=== PATIENT | female | born 1990 | race African-American/Black ===

== ENCOUNTER 2016-09-06 19:15 | Emergency (ER) | payer MEDICAID ==
[2016-03-14 09:09] VITALS: BMI 28.5
[~2016-09-06 19:15] MED LIST: BENADRYL25 MG PO; COLACE100 MG PO; FERROUS SULFAT325 MG PO; HYDROCODONE-APA1 TAB PO; IBUPROFEN600 MG PO; MACROBID100 MG PO; PRENATAL COMPLE1 TAB PO
== END 2016-09-06 20:50 | disposition home or self-care (01) ==
LOC: D.ER 19:15
DX: M79.661 Pain in right lower leg (principal); K08.89 Other specified disorders of teeth and supporting structures; K02.9 Dental caries, unspecified; F17.200 Nicotine dependence, unspecified, uncomplicated

== ENCOUNTER 2016-11-18 13:44 | Emergency (ER) | payer MEDICAID ==
[2016-03-14 09:09] VITALS: BMI 28.5
== END 2016-11-18 14:39 | disposition home or self-care (01) ==
LOC: D.ER 13:44
DX: K08.89 Other specified disorders of teeth and supporting structures (principal)

== ENCOUNTER 2016-11-23 07:08 | Inpatient (IN) | payer MEDICAID ==
[~2016-11-23] VITALS: Ht 162.6 cm; Wt 60.0 kg
[2016-11-23 07:45] LABS: BASOPHILS 0.2 % (0-2); EOSINOPHILS 0.2 % (0-7); HEMOGLOBIN 10.2 g/dL (12-16); IMMATURE GRANULOCYTES 0.2 % (0-5); LYMPHOCYTES 25.2 % (15-50); MCH 34.6 pg (26.0-34.0); MCHC 32.9 g/dL (31.0-37.0); MCV 105.1 fL (80.0-100.0); MEAN PLATELET VOLUME 10.6 fL (7.4-10.4); NEUTROPHILS 66.2 % (40-80); PLATELET COUNT 166 10x3/uL (130-400); RBC 2.95 10x6/uL (4.00-5.40); RDW 16.1 % (11.5-14.5); WBC 6.4 10x3/uL (4.8-10.8)
[2016-11-23 08:03] LABS: ALBUMIN 2.5 g/dL (3.4-5.0); ALKALINE PHOSPHATASE 312 U/L (46-116); ALT (SGPT) 179 U/L (10-68); CALC OSMOLALITY 277 mosm/kg (275-300); CALCIUM 7.7 mg/dL (8.5-10.1); CARBON DIOXIDE 23.5 mmol/L (21.0-32.0); CHLORIDE - SERUM 104 mmol/L (98-107); CREATININE - SERUM 0.6 mg/dL (0.6-1.3); GLUCOSE 126 mg/dL (74-106); LIPASE 101 U/L (73-393); POTASSIUM - SERUM 3.8 mmol/L (3.5-5.1); PROTEIN - SERUM 6.4 g/dL (6.4-8.2); SODIUM 139 mmol/L (136-145); UREA NITROGEN 8 mg/dL (7-18); eGFR NON AFRICAN AMERICAN > 90 mL/min (90-120)
[2016-11-23 08:10] LABS: APPEARANCE CLOUDY (CLEAR); COLOR DK YELLOW (YELLOW); LEUKOCYTE ESTERASE TRACE (NEGATIVE); SPECIFIC GRAVITY 1.015 (1.005-1.020)
[2016-11-23 08:11] LABS: BACTERIA MODERATE /hpf (NONE SEEN); BILIRUBIN NEGATIVE (NEGATIVE); GLUCOSE NEGATIVE (NEGATIVE); KETONE NEGATIVE (NEGATIVE); MUCUS <1+ /lpf (NONE SEEN); NITRITE NEGATIVE (NEGATIVE); PROTEIN NEGATIVE (NEGATIVE); UROBILINOGEN NORMAL (NORMAL)
[2016-11-23 08:14] LABS: HCG SERUM NEGATIVE (NEGATIVE)
[2016-11-23 10:30] VITALS: BP 111/81
--- NOTE | 2016-11-23 10:31 | NUR ---
PT WAS RECEIVED FROM ER BY WHEELCHAIR. PT GOT IN BED. BED IS LOW, SIDE RAILS UP X 2 AND CALL LIGHT IN REACH. VSS. PT WAS THEN PICKED UP FROM X-RAY TO HAVE MRCP DONE ORDERED. HER IV R AC WAS SALINE LOCKED.
[2016-11-23 10:32] LABS: BILIRUBIN - DIRECT 2.06 mg/dL (0.00-0.30)
[2016-11-23 10:40] LABS: BILIRUBIN - INDIRECT 0.64 mg/dL (0.00-1.00)
--- NOTE | 2016-11-23 10:42 | NUR ---
PT RECEIVED BACK FROM X-RAY. SHE COULD NOT TOLERATE MRCP. SHE STATES THAT SHE PANICKED. PT BACK TO BED. GEN- AWAKE AND ALERT. LUNGS- CLEAR. HEART- RRR. ABD- SOFT WITH TENDERNESS RUQ. EXT- NO EDEMA NOTED. IV PATENT R AC. BED IS LOW, SIDE RAILS UP X 2 AND CALL LIGHT IN REACH.
--- NOTE | 2016-11-23 12:14 | NUR ---
REDEVELOPMENT SPECIALIST INITIATED. MORPHINE 1 MG Q 10 MIN WITH MAX DOSE OF 10 MG IN 1 HR. IV PATENT. PT STATES HER PAIN IS AN 8.
--- NOTE | 2016-11-23 12:35 | NUR ---
PT IS RESTING IN BED. STATES HER PAIN IS MUCH BETTER. SHE RATES PAIN A 2/10. BED IS LOW, SIDE RAILS UP X 2 AND CALL LLIGHT IN REACH.
--- NOTE | 2016-11-23 13:35 | NUR ---
PT IS SLEEPING. BED IS LOW, SIDE RAILS UP X 2 AND CALL LIGHT IN REACH.
[2016-11-23 14:34] VITALS: BP 111/81; Ht 162.6 cm; Wt 60.0 kg
--- NOTE | 2016-11-23 15:22 | NUR ---
PT WAS TRANSFERRED TO [facility]- SURG 2233 BY WHEELCHAIR. REPORT GIVEN TO RN.
--- NOTE | 2016-11-23 18:47 | NUR ---
REFUSES TO STAY NPO, DRINKING BOTTLED WATER
--- NOTE | 2016-11-23 19:00 | NUR ---
PATIENT IN BED WATCHING TV. HOB 40 DEGREES. AAOX4. RR EVEN AND UNLABORED. 0 S/S OF DISTRESS. STATES PAIN IS A 10/10. IV TO RIGHT AC PATENT WITH NO REDNESS OR SWELLING. SRX2. BED LOW. CALL LIGHT WITHIN REACH.
[2016-11-23 20:00] VITALS: BP 112/76
[2016-11-24 06:56] LABS: ALBUMIN 2.3 g/dL (3.4-5.0); ALKALINE PHOSPHATASE 268 U/L (46-116); ALT (SGPT) 151 U/L (10-68); CALCIUM 7.4 mg/dL (8.5-10.1); CARBON DIOXIDE 26.1 mmol/L (21.0-32.0); CHLORIDE - SERUM 106 mmol/L (98-107); CREATININE - SERUM 0.6 mg/dL (0.6-1.3); GLUCOSE 101 mg/dL (74-106); POTASSIUM - SERUM 3.4 mmol/L (3.5-5.1); PROTEIN - SERUM 6.2 g/dL (6.4-8.2); SODIUM 141 mmol/L (136-145); eGFR NON AFRICAN AMERICAN > 90 mL/min (90-120)
[2016-11-24 06:57] LABS: INR 1.18 (0.85-1.17); PROTIME 14.9 SECONDS (11.6-15.0)
[2016-11-24 07:00] LABS: BASOPHILS 0.4 % (0-2); EOSINOPHILS 0.2 % (0-7); HEMATOCRIT 29.6 % (36.0-48.0); HEMOGLOBIN 9.5 g/dL (12-16); IMMATURE GRANULOCYTES 0.2 % (0-5); LYMPHOCYTES 30.2 % (15-50); MCH 34.7 pg (26.0-34.0); MCHC 32.1 g/dL (31.0-37.0); MEAN PLATELET VOLUME 11.5 fL (7.4-10.4); MONOCYTES 8.6 % (2-11); NEUTROPHILS 60.4 % (40-80); PLATELET COUNT 168 10x3/uL (130-400); RBC 2.74 10x6/uL (4.00-5.40); RDW 16.1 % (11.5-14.5); WBC 4.6 10x3/uL (4.8-10.8)
[2016-11-24 07:06] LABS: CALC OSMOLALITY 277 mosm/kg (275-300); UREA NITROGEN 4 mg/dL (7-18)
--- NOTE | 2016-11-24 07:35 | NUR ---
LYING IN BED, REQUESTING FOOD AND DRINK, CALL LIGHT IN REACH, BED LOWEST POSITION, WILL CONTINUE TO MONITOR
[2016-11-24 08:17] LABS: FOLATE (FOLIC ACID) - SERUM 9.2 ng/mL (>3.0)
[2016-11-24 08:21] VITALS: BP 125/76
[2016-11-24 10:16] LABS: HEPATITIS C ANTIBODY <0.1 (0.0-0.9)
--- NOTE | 2016-11-24 10:30 | NUR ---
PATIENT IN LEFT LATERAL POSITION RESTING WITH EYES CLOSED. RESPIRATIONS EVEN AND UNLABORED. SIDE RAILS UP X2. BED IN LOW POSITION. CALL LIGHT IN REACH.
[2016-11-24 13:01] VITALS: BP 128/89
[2016-11-24 16:10] VITALS: BP 133/95
--- NOTE | 2016-11-24 19:00 | NUR ---
PATIENT IN BED WATCHING TV. HOB 40 DEGREES. AAOX4. RR EVEN AND UNLABORED. 0 S/S OF DISTRESS. STATES PAIN IS A 7/10. IV TO RIGHT AC PATENT WITH NO REDNESS OR SWELLING. SRX2. BED LOW. CALL LIGHT WITHIN REACH.
[2016-11-24 20:00] VITALS: BP 105/54
[2016-11-25] VITALS: BP 110/62
[2016-11-25 04:00] VITALS: BP 114/66
[2016-11-25 06:15] LABS: BASOPHILS 0.2 % (0-2); EOSINOPHILS 0.7 % (0-7); HEMATOCRIT 29.6 % (36.0-48.0); HEMOGLOBIN 9.4 g/dL (12-16); IMMATURE GRANULOCYTES 0.2 % (0-5); LYMPHOCYTES 35.6 % (15-50); MCH 34.6 pg (26.0-34.0); MCHC 31.8 g/dL (31.0-37.0); MCV 108.8 fL (80.0-100.0); MONOCYTES 7.6 % (2-11); NEUTROPHILS 55.7 % (40-80); PLATELET COUNT 166 10x3/uL (130-400); RBC 2.72 10x6/uL (4.00-5.40); RDW 16.2 % (11.5-14.5); WBC 4.2 10x3/uL (4.8-10.8)
[2016-11-25 06:37] LABS: ALBUMIN 2.2 g/dL (3.4-5.0); ALKALINE PHOSPHATASE 247 U/L (46-116); ALT (SGPT) 125 U/L (10-68); BILIRUBIN - DIRECT 2.42 mg/dL (0.00-0.30); BILIRUBIN - INDIRECT 1.08 mg/dL (0.00-1.00); CALCIUM 7.5 mg/dL (8.5-10.1); CARBON DIOXIDE 26.5 mmol/L (21.0-32.0); CHLORIDE - SERUM 105 mmol/L (98-107); CREATININE - SERUM 0.6 mg/dL (0.6-1.3); GLUCOSE 112 mg/dL (74-106); PROTEIN - SERUM 6.1 g/dL (6.4-8.2); SODIUM 138 mmol/L (136-145); eGFR NON AFRICAN AMERICAN > 90 mL/min (90-120)
[2016-11-25 06:38] LABS: CALC OSMOLALITY 272 mosm/kg (275-300); POTASSIUM - SERUM 3.3 mmol/L (3.5-5.1); UREA NITROGEN 2 mg/dL (7-18)
--- NOTE | 2016-11-25 08:00 | NUR ---
ASSESSMENT COMPLETE. IV TO R AC PATENT. NS INFUSING AT 100 CC/HR VIA PUMP. BUSINESS ANALYSIS CONSULTANT MORPHINE 1-10-10 IN USE FOR PAIN CONTROL. NPO FOR SURGERY TODAY.
[2016-11-25 10:05] VITALS: BP 126/99
--- NOTE | 2016-11-25 10:21 | NUR ---
Patient Name: TOYA REYES Admission Status: ER Accout number: [id number] Admission Date: 11-23-2016 : 1990 Admission Diagnosis: Attending: PAT Current LOS: 2 Anticipated DC Date: 11-27-2016 Planned Disposition: Home Primary Insurance: MEDICAID [place] Discharge Planning Comments: CM MET WITH PATIENT REGARDING D/C NEEDS AND PLANS. PATIENT STATED SHE LIVES WITH HER UNCLE (TYLER) AND HE WILL DRIVE HER HOME AT DISCHARGE. PATIENT STATED THERE ARE NO STAIRS AT HOME. PATIENT STATED SHE IS INDEPENDENT WITH HER CARE AND HAS NO DME AT HOME. PATIENTS PCP IS DR. DOLAN AND USES [facility] AT [facility]. PATIENT WAS OFFERED HOME HEALTH AND SHE STATED "NO HOME HEALTH". CM WILL CONTINUE TO FOLLOW PATIENT WITH D/C NEEDS AND PLANS. PCP DR. MAGDALENO BHAGAT (PHARMACY) [facility] [phone] TYLER (UNCLE) [phone] [employer]: Xi [place] Jesus Is the patient Alert and Oriented? Yes 0 * How many steps to enter\\exit or inside your home? 0 0 * PCP DR. DOLAN 0 * Pharmacy [facility] 0 * Preadmission Environment Home with Family 0 * ADLs Independent 0 * List name and contact numbers for known caregivers / representatives who currently or will assist patient after discharge: TYLER RUIZ (UNCLE) [phone] 0 * Community resources currently utilized None 0 * Additional services required to return to the preadmission environment? Yes 0 * Can the patient safely return to the preadmission environment? Yes 0 * Has this patient been hospitalized within the prior 30 days at any hospital? No 0 Grand Total: 0
[2016-11-25 11:26] LABS: HCG SERUM NEGATIVE (NEGATIVE)
[2016-11-25 11:36] VITALS: BP 125/98
--- NOTE | 2016-11-25 12:07 | NUR ---
OFF FLOOR TO OR VIA BED.
--- NOTE | 2016-11-25 14:40 | NUR ---
STERI STRIPS INTACT TO ABDOMINAL INCISIONS X 4. VSS. SCDS IN USE TO BILAT LEGS.
--- NOTE | 2016-11-25 14:40 | NUR ---
RETURNED TO ROOM FROM RECOVERY ROOM.
[2016-11-25 14:42] VITALS: BP 114/80
--- NOTE | 2016-11-25 16:00 | NUR ---
UP AMBULATING IN ROOM. DENIES ANY NEEDS AT PRESENT.
--- NOTE | 2016-11-25 18:00 | NUR ---
NO CHANGES NOTED.
[2016-11-25 19:00] VITALS: BP 131/85
--- NOTE | 2016-11-25 19:00 | NUR ---
BEDSIDE REPORT RECEIVED AND CARE OF PT ASSUMED. PT UP AMBULATING IN THE ROOM AT THIS ASSESSMENT. DRESSINGS ON LAP SITES INTACT WITH SMALL AMOUNT OF DRAINAGE SEEPING THROUGH. IV IN RIGHT AC PATENT WITH NS INFUSING AT 100 ML / HR. PORTABLE IRRIGATION OPERATOR / MORPHINE IN USE FOR PAIN CONTROL. WILL MONITOR [facility] FOR NEEDS.
--- NOTE | 2016-11-25 21:34 | NUR ---
HS MEDICATIONS GIVEN. NEW IV FLUID BAG STARTED.
--- NOTE | 2016-11-25 23:38 | NUR ---
NPO STATUS STARTING AT MIDNIGHT.
[2016-11-26] VITALS: BP 122/95
[2016-11-26 04:00] VITALS: BP 122/84
[2016-11-26 05:51] LABS: BASOPHILS 0.2 % (0-2); EOSINOPHILS 0.2 % (0-7); HEMATOCRIT 28.6 % (36.0-48.0); HEMOGLOBIN 9.2 g/dL (12-16); IMMATURE GRANULOCYTES 0.2 % (0-5); LYMPHOCYTES 27.9 % (15-50); MCH 35.7 pg (26.0-34.0); MCHC 32.2 g/dL (31.0-37.0); MCV 110.9 fL (80.0-100.0); MEAN PLATELET VOLUME 11.3 fL (7.4-10.4); MONOCYTES 9.1 % (2-11); NEUTROPHILS 62.4 % (40-80); PLATELET COUNT 162 10x3/uL (130-400); RBC 2.58 10x6/uL (4.00-5.40); RDW 16.1 % (11.5-14.5); WBC 5.3 10x3/uL (4.8-10.8)
[2016-11-26 06:13] LABS: ALBUMIN 2.3 g/dL (3.4-5.0); ALKALINE PHOSPHATASE 272 U/L (46-116); BILIRUBIN - DIRECT 3.08 mg/dL (0.00-0.30); BILIRUBIN - INDIRECT 0.82 mg/dL (0.00-1.00); CARBON DIOXIDE 27.8 mmol/L (21.0-32.0); CHLORIDE - SERUM 106 mmol/L (98-107); CREATININE - SERUM 0.6 mg/dL (0.6-1.3); GLUCOSE 97 mg/dL (74-106); POTASSIUM - SERUM 3.6 mmol/L (3.5-5.1); PROTEIN - SERUM 6.3 g/dL (6.4-8.2); SODIUM 142 mmol/L (136-145); eGFR NON AFRICAN AMERICAN > 90 mL/min (90-120)
[2016-11-26 06:17] LABS: ALT (SGPT) 200 U/L (10-68); CALC OSMOLALITY 278 mosm/kg (275-300); UREA NITROGEN 1 mg/dL (7-18)
--- NOTE | 2016-11-26 07:25 | NUR ---
PT PULLED OUT IV AT 0630. RE-SITED TO RIGHT AC USING 20 GUAGE CATHETER IN ONE STICK. RE-STARTED IV FLUIDS AND COGNOS LEAD.
--- NOTE | 2016-11-26 08:00 | NUR ---
ASSESSMENT COMPLETE. IV TO R AC PATENT. NS INFUSING AT 100 CC/HR VIA PUMP. INTERNETWORKING TECHNICIAN MOPRHINE 1-10-10 IN USE FOR PAIN CONTROL. INCISIONS X 4 TO ABDOMEN WITH STERI STRIPS INTACT. DENIES ANY NEEDS AT PRESENT.
--- NOTE | 2016-11-26 08:15 | NUR ---
PATIENT AT ICE MACHINE GETTING ICE. EXPLAINED THAT ORDER IS FOR NPO. STATES "I'M NOT DOING IT. I'M NOT HAVING ANYTHING ELSE DONE" AND RETURNED TO ROOM.
--- NOTE | 2016-11-26 08:22 | OP ---
PATIENT NAME: TOYA REYES MEDICAL RECORD: [id number] :86 LOCATION:[id number] ADMISSION DATE:11/23/16 SURGEON: CINDY RUBIO MD DATE OF OPERATION: 11/25/2016 DATE OF OPERATION: 11/25/2016 SURGEON: Cindy Rubio MD. PREOPERATIVE DIAGNOSES: 1. Choledocholithiasis. 2. Jaundice. 3. Chronic anemia. POSTOPERATIVE DIAGNOSES: 1. Choledocholithiasis. 2. Jaundice. 3. Chronic anemia. PROCEDURE PERFORMED: Laparoscopic cholecystectomy. ANESTHESIA: General. COMPLICATIONS: None. SPECIMENS: Gallbladder. Case was clean contaminated. ESTIMATED BLOOD LOSS: 40 cc. OPERATIVE COURSE: After consent was obtained, the patient was taken to the operating room and placed in the supine position on the operating table. Next, general anesthesia was given via endotracheal intubation. After a timeout was performed that confirmed the correct patient and procedure, anesthesia was obtained, timeout was taken to confirm the correct patient and procedure. Local anesthetic was injected just above the umbilicus. A stab incision was made with an 11-blade scalpel. Using a 5-mm bladeless optical trocar, the abdomen was entered under direct laparoscopic vision was obtained, the patient had profound hepatomegaly. The liver was enlarged to below the umbilicus as well as the ASIS laterally. At this time, ____. The patient was placed in the steep reverse Trendelenburg position. All remaining trocars were placed. A suprapubic port was placed. Two 5-mm trocars were placed into the right lower quadrant. The 5-mm supraumbilical port was upsized to an 11-mm port. The liver was retracted, the gallbladder was identified. [place] down the liver bed, it was grasped and retracted. It was sutured and the sutures were used to suspend the gallbladder, the one retractor was used to elevate the medial portion of the liver and the retractor was then used to take retract the infundibulum laterally. The peritoneum was incised using electrocautery. Blunt dissection was performed with a [place] dissector until the critical view was obtained. Cystic duct lateral, cystic artery medial, liver in the posterior window. At this time, 2 clips were placed in the proximal cystic artery. Three clips were placed in the one clip distal. The artery was transected. The infundibulum of the gallbladder was markedly dilated. At this time, a linear cutting stapler was used to transect the cystic duct with a single firing of the blue load. Next, OPERATIVE REPORT [id number] TOYA REYES the remaining portion of the gallbladder was dissected off the liver bed using electrocautery. Once complete, it was grasped with the tenaculum and removed through the 11-mm trocar and sent for permanent pathology. Next, the operative field was copiously irrigated and suctioned. Careful attention was paid to hemostasis which was obtained liver bed using electrocautery. At this time, the abdomen was copiously irrigated and suctioned. Careful attention was paid to hemostasis remaining portion abdomen was inspected. No evidence of bleeding, no evidence of bowel injury. No evidence of bile leak. At this time, all remaining instruments were removed. The abdomen was desufflated. Trocars were removed. Skin was closed with 4-0 Monocryl, the 12-mm trocar site. The fascia was closed with an 0 Vicryl suture. Skin was closed with 4-0 Monocryl, Mastisol and Steri-Strips. At the end of the case, all needle and instruments were correct. No complications occurred. The patient was extubated and transferred to the PACU in stable condition. TRANSINT:[id number] Voice Confirmation ID: [id number] DOCUMENT ID: [id number] CINDY RUBIO MD at 0822 CC: [id number] DICTATION DATE: 11/25/16 1439 GROUP INSURANCE SPECIAL AGENT: 11/25/[id number] ADM IN [place] [id number] [place] [id number]
[2016-11-26 08:42] VITALS: BP 125/93
--- NOTE | 2016-11-26 09:54 | NUR ---
CM REASSESSMENT NOTE: SABI CALLED PREETHI ([employer]) AT [facility] FOR TRANSFER OF PATIENT FOR ERCP. PREETHI GAVE DR. CUEVAS NUMBER FOR DR. RUBIO TO CALL. [facility] RECOVERY ANALYST CALLED DR. RUBIO WITH NUMBER.
--- NOTE | 2016-11-26 10:04 | NUR ---
RESTING QUIETLY IN BED. DENIES ANY NEEDS AT PRESENT.
[2016-11-26 12:01] VITALS: BP 121/90
[2016-11-26] MEDS ORDERED: ZOSYN 3.3753.375 G1 IV (12:04)
[2016-11-26] MEDS ORDERED: IPRAT-ALBUT 0.5-3 ML UPD (12:05)
[2016-11-26] MEDS ORDERED: LOVENOX30 MG/0.3 SC (12:06)
[2016-11-26] MEDS ORDERED: FLORAJEN3 CAPS460 MG PO (12:08)
[2016-11-26] MEDS ORDERED: MILK OF MAGNESI30 ML PO (12:10)
[2016-11-26] MEDS ORDERED: ONDANSETRON4 MG/2 M3 IV (12:13)
[2016-11-26] MEDS ORDERED: HYDROCODON-ACE1 EAC7 PO (12:16)
--- NOTE | 2016-11-26 12:36 | NUR ---
REPORT CALLED TO SURYA GERMAN RN AT [facility].
--- NOTE | 2016-11-26 13:35 | NUR ---
DC'D TO [facility] VIA AMBULANCE.
--- NOTE | 2016-11-26 13:45 | NUR ---
CM REASSESSMENT NOTE: PATIENT TRANSFERRED TO [facility] BY AMBULANCE.
== END 2016-11-26 13:35 | disposition short-term general hospital (02) | DRG 418 ==
LOC: D.ER 07:08 → D.WS 09:24 → D.MS 09:24
PROVIDERS: Anesthesiology; Emergency Medicine; ADMIT Surgery
PROC: 0FT44ZZ Resection of Gallbladder, Percutaneous Endoscopic Approach (ICD-10-PCS; principal; 2016-11-25 11:15)
DX: K80.51 Calculus of bile duct without cholangitis or cholecystitis with obstruction (principal); F17.203 Nicotine dependence unspecified, with withdrawal; N39.0 Urinary tract infection, site not specified; D50.9 Iron deficiency anemia, unspecified; Z91.19 Patient's noncompliance with other medical treatment and regimen; K76.0 Fatty (change of) liver, not elsewhere classified

== ENCOUNTER 2017-04-22 16:05 | Emergency (ER) | payer MEDICAID ==
[~2017-04-22 16:05] MED LIST changes: +FLORAJEN3 CAPS460 MG PO; +HYDROCODON-ACE1 EAC7 PO; +IPRAT-ALBUT 0.5-3 ML UPD; +LOVENOX30 MG/0.3 SC; +MILK OF MAGNESI30 ML PO; +ONDANSETRON4 MG/2 M3 IV; +ZOSYN 3.3753.375 G1 IV
== END 2017-04-22 17:45 | disposition home or self-care (01) ==
LOC: D.ER 16:05
DX: K04.7 Periapical abscess without sinus (principal); K08.89 Other specified disorders of teeth and supporting structures

== ENCOUNTER 2017-06-05 05:09 | Observation (INO) | payer MEDICAID ==
[~2017-06-05] VITALS: Ht 162.6 cm; Wt 56.8 kg
[2017-06-05 05:39] LABS: BASOPHILS 0.2 % (0-2); EOSINOPHILS 0.7 % (0-7); HEMATOCRIT 24.9 % (36.0-48.0); HEMOGLOBIN 8.6 g/dL (12-16); IMMATURE GRANULOCYTES 0.4 % (0-5); LYMPHOCYTES 27.4 % (15-50); MCH 30.8 pg (26.0-34.0); MCHC 34.5 g/dL (31.0-37.0); MCV 89.2 fL (80.0-100.0); MEAN PLATELET VOLUME 9.5 fL (7.4-10.4); NEUTROPHILS 61.3 % (40-80); RBC 2.79 10x6/uL (4.00-5.40); RDW 24.5 % (11.5-14.5); WBC 8.1 10x3/uL (4.8-10.8)
[2017-06-05 05:42] LABS: PLATELET COUNT 75 10x3/uL (130-400)
[2017-06-05 05:59] LABS: HCG SERUM NEGATIVE (NEGATIVE)
[2017-06-05 06:04] LABS: ALBUMIN 1.8 g/dL (3.4-5.0); ALKALINE PHOSPHATASE 255 U/L (46-116); ALT (SGPT) 70 U/L (10-68); AMYLASE - SERUM 39 U/L (25-115); BILIRUBIN - TOTAL 3.87 mg/dL (0.2-1.3); CALC OSMOLALITY 273 mosm/kg (275-300); CALCIUM 7.5 mg/dL (8.5-10.1); CARBON DIOXIDE 26.9 mmol/L (21.0-32.0); CHLORIDE - SERUM 102 mmol/L (98-107); CREATININE - SERUM 0.6 mg/dL (0.6-1.3); GLUCOSE 121 mg/dL (74-106); INR 1.75 (0.85-1.17); LIPASE 100 U/L (73-393); PROTEIN - SERUM 7.1 g/dL (6.4-8.2); PROTIME 19.9 SECONDS (11.6-15.0); SODIUM 138 mmol/L (136-145); UREA NITROGEN 3 mg/dL (7-18); eGFR NON AFRICAN AMERICAN > 90 mL/min (90-120)
[2017-06-05 06:05] LABS: APTT 49.1 SECONDS (22.8-39.4); POTASSIUM - SERUM 2.5 mmol/L (3.5-5.1)
[2017-06-05 06:07] LABS: UDS - AMPHET NEGATIVE QUAL (NEGATIVE); UDS - BARB NEGATIVE QUAL (NEGATIVE); UDS - BENZO NEGATIVE QUAL (NEGATIVE); UDS - COCAINE NEGATIVE QUAL (NEGATIVE); UDS - OPIATE NEGATIVE QUAL (NEGATIVE); UDS - PCP NEGATIVE QUAL (NEGATIVE); UDS - THC NEGATIVE QUAL (NEGATIVE)
[2017-06-05 06:10] LABS: APPEARANCE TURBID (CLEAR); BILIRUBIN NEGATIVE (NEGATIVE); COLOR YELLOW (YELLOW); GLUCOSE NEGATIVE (NEGATIVE); KETONE NEGATIVE (NEGATIVE); NITRITE POSITIVE (NEGATIVE); PROTEIN TRACE mg/dL (NEGATIVE); UROBILINOGEN NORMAL (NORMAL)
[2017-06-05 06:10] LABS: PLATELET ESTIMATE DECREASED; PLATELET MORPHOLOGY NO PLT CLUMPS SEEN
[2017-06-05 06:12] LABS: BACTERIA MANY /hpf (NONE SEEN); EPITHELIAL CELLS 0-5 /hpf (0-5); RED CELLS - URINE 0-5 /hpf (0-5)
[2017-06-05 11:07] VITALS: BP 91/50
[2017-06-05 15:14] VITALS: BP 102/69
[2017-06-05 22:00] VITALS: BP 111/61
[2017-06-06 04:18] VITALS: BP 111/61; Ht 162.6 cm; Wt 56.8 kg
[2017-06-06 05:00] VITALS: BP 118/66
[2017-06-06 05:11] LABS: BASOPHILS 0.3 % (0-2); EOSINOPHILS 0.6 % (0-7); HEMATOCRIT 23.9 % (36.0-48.0); HEMOGLOBIN 8.2 g/dL (12-16); IMMATURE GRANULOCYTES 0.2 % (0-5); LYMPHOCYTES 27.3 % (15-50); MCH 31.2 pg (26.0-34.0); MCHC 34.3 g/dL (31.0-37.0); MCV 90.9 fL (80.0-100.0); MEAN PLATELET VOLUME 10.4 fL (7.4-10.4); MONOCYTES 7.5 % (2-11); NEUTROPHILS 64.1 % (40-80); PLATELET COUNT 71 10x3/uL (130-400); RBC 2.63 10x6/uL (4.00-5.40); RDW 24.9 % (11.5-14.5); WBC 6.4 10x3/uL (4.8-10.8)
[2017-06-06 05:32] LABS: ALBUMIN 1.5 g/dL (3.4-5.0); ALKALINE PHOSPHATASE 205 U/L (46-116); ALT (SGPT) 61 U/L (10-68); BILIRUBIN - TOTAL 3.57 mg/dL (0.2-1.3); CALC OSMOLALITY 271 mosm/kg (275-300); CALCIUM 7.2 mg/dL (8.5-10.1); CARBON DIOXIDE 26.3 mmol/L (21.0-32.0); CHLORIDE - SERUM 106 mmol/L (98-107); CREATININE - SERUM 0.6 mg/dL (0.6-1.3); GLUCOSE 129 mg/dL (74-106); MAGNESIUM - SERUM 1.8 mg/dL (1.8-2.4); POTASSIUM - SERUM 3.3 mmol/L (3.5-5.1); PROTEIN - SERUM 6.4 g/dL (6.4-8.2); SODIUM 137 mmol/L (136-145); UREA NITROGEN 2 mg/dL (7-18); eGFR NON AFRICAN AMERICAN > 90 mL/min (90-120)
[2017-06-06 06:12] LABS: INR 1.76 (0.85-1.17)
[2017-06-06 07:28] VITALS: BP 90/41
[2017-06-06 11:04] VITALS: BP 90/57
[2017-06-09 07:21] LABS: HEPATITIS C ANTIBODY 0.2 (0.0-0.9)
== END 2017-06-06 16:27 | disposition home or self-care (01) ==
LOC: D.ER 05:09 → D.MS 09:45 → OBSVTIME 09:45 → D.MS 06-06 16:27
PROVIDERS: Emergency Medicine; Family Medicine
DX: N39.0 Urinary tract infection, site not specified (principal); K70.31 Alcoholic cirrhosis of liver with ascites; R53.1 Weakness; E87.6 Hypokalemia; E83.42 Hypomagnesemia; S20.01XA Contusion of right breast, initial encounter; Y04.0XXA Assault by unarmed brawl or fight, initial encounter